=== PATIENT | female | born 1995 | race African-American/Black ===

== ENCOUNTER 2018-04-21 21:05 | Emergency (ER) | payer OTHER ==
[~2018-04-21] VITALS: Ht 162.6 cm; Wt 90.7 kg
[2018-04-21 21:16] LABS: URINE BILIRUBIN NEGATIVE (Negative); URINE BLOOD 3+ (Negative); URINE CLARITY SL CLOUDY; URINE COLOR YELLOW; URINE GLUCOSE-RANDOM* NEGATIVE (Negative); URINE KETONES NEGATIVE (Negative); URINE NITRITE-REFLEX NEGATIVE (Negative); URINE PROTEIN (DIPSTICK) TRACE (Negative); URINE SPECIFIC GRAVITY >= 1.030 (1.005-1.035); URINE UROBILINOGEN 0.2 E.U./dl (0.2-1.0)
[2018-04-21 21:21] LABS: URINE LEUKOCYTES-REFLEX 2+ (Negative)
[2018-04-21 21:28] LABS: SQUAMOUS 4-10 Moderate /LPF (0-3); URINE RBC >20 Many /HPF (0-2)
[2018-04-21 21:30] LABS: BACTERIA-REFLEX 1-9 Few /HPF (None Seen); CASTS None Seen /LPF (None Seen); CRYSTALS None Seen /LPF (None Seen); URINE WBC-REFLEX 6-15 Few /HPF (0-5)
[2018-04-21] MEDS ORDERED: PEPTO-BISMOL T262 MG (21:53)
[2018-04-21 22:08] LABS: HEMATOCRIT 30.8 % (37.0-47.0); HEMOGLOBIN 9.6 gm/dL (12.0-15.0); MCH 20.3 pg (26.0-34.0); MCHC 31.1 g/dL (28.0-37.0); MCV 65.2 fL (80.0-100.0); PLATELET COUNT 385 thou/uL (150-400); RBC 4.73 mil/uL (4.20-5.00); RDW 19.2 % (10.5-14.5); WBC 9.9 thou/uL (4.0-11.0)
[2018-04-21 22:22] LABS: CALCIUM 9.4 mg/dL (8.5-10.1); CREATININE 0.8 mg/dL (0.6-1.0); POTASSIUM 3.5 mmol/L (3.5-5.1)
[2018-04-21 22:27] LABS: ALBUMIN 3.8 g/dL (3.4-5.0); TOTAL BILIRUBIN 0.4 mg/dL (<0.1-1.0); TOTAL PROTEIN 8.7 g/dL (6.4-8.2)
[2018-04-21 22:45] LABS: ANISOCYTOSIS 1+
[2018-04-21 22:46] LABS: HYPOCHROMASIA 1+; MICROCYTES 2+
[2018-04-21] MEDS ORDERED: IRON325 PO (22:51)
[2018-04-21] MEDS ORDERED: LEVSIN0.125 MG PO (22:51)
[2018-04-21] MEDS ORDERED: FLAGYL500 MG PO (22:51)
[2018-04-21] MEDS ORDERED: KEFLEX500 M1 PO (22:51)
[2018-04-21 23:20] VITALS: BP 124/68
== END 2018-04-21 23:22 | disposition home or self-care (01) ==
LOC: ER 21:05
PROVIDERS: Physician Assistant
DX: A59.9 Trichomoniasis, unspecified (principal); N39.0 Urinary tract infection, site not specified; D64.9 Anemia, unspecified; R19.7 Diarrhea, unspecified

== ENCOUNTER 2021-03-16 21:37 | Emergency (ER) | payer OTHER ==
[~2021-03-16] VITALS: Ht 162.6 cm; Wt 95.3 kg
[~2021-03-16 21:37] MED LIST: FLAGYL500 MG PO; IRON325 PO; KEFLEX500 M1 PO; LEVSIN0.125 MG PO; PEPTO-BISMOL T262 MG
[2021-03-16 22:38] LABS: URINE BILIRUBIN NEGATIVE (Negative); URINE BLOOD 2+ (Negative); URINE CLARITY CLOUDY; URINE COLOR YELLOW; URINE GLUCOSE-RANDOM* NEGATIVE (Negative); URINE KETONES TRACE (Negative); URINE NITRITE-REFLEX NEGATIVE (Negative); URINE PROTEIN (DIPSTICK) 2+ (Negative); URINE SPECIFIC GRAVITY 1.025 (1.005-1.035)
[2021-03-16 22:56] LABS: URINE LEUKOCYTES-REFLEX 2+ (Negative)
[2021-03-16 22:57] LABS: CASTS None Seen /LPF (None Seen); CRYSTALS None Seen /LPF (None Seen); MUCUS 4-6 Moderate strn/LPF (None Seen); SQUAMOUS >10 Many /LPF (0-3); URINE WBC-REFLEX 6-15 Few /HPF (0-5)
[2021-03-16] MEDS ORDERED: CEPHALEXIN500 MG PO (23:08)
[2021-03-16 23:37] VITALS: BP 143/89
== END 2021-03-16 23:39 | disposition home or self-care (01) ==
LOC: ER 21:37
PROVIDERS: Physician Assistant
DX: N39.0 Urinary tract infection, site not specified (principal); R31.9 Hematuria, unspecified; Z98.890 Other specified postprocedural states